=== PATIENT | female | born 1985 | race Caucasian/White ===

== ENCOUNTER → 2021-02-20 09:25 | Outpatient (CLI) | payer OTHER, SELFPAY ==
[2021-02-28 08:53] LABS: HPV APTIMA, High Risk Positive (Negative)
[2021-02-28 08:54] LABS: HPV Reflexed? YES, CHARGE PATIENT
== END ==
PROVIDERS: Visit Provider Obstetrics & Gynecology
DX: Z12.4 Encounter for screening for malignant neoplasm of cervix (principal)
CPT/HCPCS: 87624; 88175; G0145

== ENCOUNTER → 2021-03-18 16:08 | Outpatient (CLI) | payer OTHER, SELFPAY ==
--- NOTE | 2021-03-18 | IMM_PTH ---
PATIENT: GORAN BONILLA LOC: [facility] U#:[id number] AGE/SX: 39/F ROOM: RE03/18/[address]: Dr. Maurisio Salinas MD : 1985 BED: DIS: SPEC #: [id number] RECD: 03/20/21 14:43 STATUS: ADALBERTO OJEDA #: [id number] REDD: 03/18/21 00:[address]: Maurisio Salinas DEPT: IMMUNOHISTOCHEMISTRY RECD BY: Germania Campbell Tissues: A - Uterine cervix, NOS B - Endocervical Procedures: p16 (initial) KI-67 (add) PHYSICIAN & INSTITUTION [place] [address] SPECIMEN INFORMATION: Tissue Source: A ? Cervix, four-quad biopsy, B ? Endocervix, curettings Clinical Info: ASCUS, positive HPV Specimen Number: [id number] A & B CPT code: 62215 x2, 98994 x2 METHODOLOGY: Deparaffinized sections of prefer/formalin-fixed tissue or PAP/DQ stained slides are incubated with monoclonal/polyclonal antibodies/oligonucleotide probes. Localization is made via biotin free immunoperoxidase method. Appropriate controls are performed and reacted as expected. Results on target cell population are indicated in the following table: RESULTS: ANTIBODY / CLONE RESULT Block A P16 (E6H4) positive, rare Ki-67 (30-9) positive, low Block B P16 (E6H4) negative Ki-67 (30-9) positive, low These tests were developed and their performance characteristics determined by [facility]. They may not have been cleared or approved by the [place]. Food and Drug Administration. The FDA has determined that such clearance or approval is not necessary. The above immunohistochemical/dualISH markers are ordered and reviewed by the Pathologist. INTERPRETATION: A. Cervix, four-quad biopsy: Focal HPV change suspected. B. Endocervix, curettings: No evidence of dysplasia. AM:talon 03/23/2021 AM:talon 04/06/2021
--- NOTE | 2021-03-18 | IMM_PTH ---
PATIENT: GORAN BONILLA LOC: [facility] U#:[id number] AGE/SX: 39/F ROOM: RE03/18/[address]: Dr. Maurisio Salinas MD : 1985 BED: DIS: SPEC #: [id number] RECD: 03/20/21 14:43 STATUS: ADALBERTO OJEDA #: [id number] REDD: 03/18/21 00:[address]: Maurisio Salinas DEPT: IMMUNOHISTOCHEMISTRY RECD BY: Germania Campbell Tissues: A - Uterine cervix, NOS Procedures: p16 (initial) KI-67 (add) PHYSICIAN & INSTITUTION [place] [address] SPECIMEN INFORMATION: Tissue Source: A ? Cervix, four-quad biopsy Clinical Info: ASCUS, positive HPV Specimen Number: [id number] CPT code: 74258, 63133 METHODOLOGY: Deparaffinized sections of prefer/formalin-fixed tissue or PAP/DQ stained slides are incubated with monoclonal/polyclonal antibodies/oligonucleotide probes. Localization is made via biotin free immunoperoxidase method. Appropriate controls are performed and reacted as expected. Results on target cell population are indicated in the following table: RESULTS: ANTIBODY / CLONE RESULT Block A P16 (E6H4) positive, rare Ki-67 (30-9) positive, low These tests were developed and their performance characteristics determined by [facility]. They may not have been cleared or approved by the [place].S. Food and Drug Administration. The FDA has determined that such clearance or approval is not necessary. The above immunohistochemical/dualISH markers are ordered and reviewed by the Pathologist. INTERPRETATION: A. Cervix, four-quad biopsy: Focal HPV change suspected. AM:talon 03/23/2021
--- NOTE | 2021-03-18 15:30 | CER_PTH ---
PATIENT: GORAN BONILLA LOC: [facility] U#:[id number] AGE/SX: 39/F ROOM: RE03/18/[address]: Dr. Maurisio Salinas MD : 1985 BED: DIS: SPEC #: [id number] RECD: 03/18/21 17:19 STATUS: ADALBERTO OJEDA #: [id number] REDD: 03/18/21 15:[address]: Maurisio Salinas DEPT: SURGICAL PATHOLOGY RECD BY: Mathew Larson Tissues: A - Uterine cervix, NOS B - Endocervical Procedures: Surgery Specimen Level IV HEADER OPERATION: Colposcopy PRE-OP DIAGNOSIS: ASCUS, positive HPV TISSUE SUBMITTED: A ? Cervical biopsy four Lian madera - [facility] MICROSCOPIC DIAGNOSIS A. Cervix, biopsy: Focal HPV change suspected. See comment. B. Endocervix, curettings: Strips of benign superficial endocervix. No evidence of dysplasia. AM:talon 03/20/2021 COMMENT A & B. Results from immunohistochemistry ([id number]) for surrogate HPV marker (p16) will be reported separately. MICROSCOPIC DESCRIPTION Slides are reviewed. GROSS DESCRIPTION A - Received in fixative is one container labeled with the patient's name and designated cervical biopsy. The specimen consists of multiple irregular fragments of light pizarro soft tissue that in aggregate measure 1 x 0.5 x 0.1 cm. The specimen is totally submitted in one cassette. B - Received in fixative is one container labeled with the patient's name and designated ECC. The specimen consists of reddish-pizarro mucoid material aggregating to 1 x 1 x <0.1 cm. The specimen is totally submitted in one cassette. / AM:talon 03/19/21 TC:3 CPT: 48328 x2
== END ==
PROVIDERS: Visit Provider Obstetrics & Gynecology
DX: R87.810 Cervical high risk human papillomavirus (HPV) DNA test positive (principal); R87.610 Atypical squamous cells of undetermined significance on cytologic smear of cervix (ASC-US)
CPT/HCPCS: 88305; 88341; 88342